=== PATIENT | male | born 1970 | race African-American/Black ===

== ENCOUNTER 2018-02-26 09:52 | Inpatient (IN) | payer OTHER ==
[2018-02-26] MEDS: CEFTRIAXONE 1 GM/50 ML (PMX) 50 ML IVPB (11:55)
[2018-02-26] MEDS: LACTATED RINGER'S 1,000 ML IV (11:55)
[2018-02-26] MEDS: IBUPROFEN 600 MG TAB PO (11:55)
[2018-02-26 11:58] LABS: ADD MAN DIFF? NO
[2018-02-26 12:07] LABS: BASOPHILS % 0.4 % (0.0-2.0); EOSINOPHILS # 0.1 10^3/ul (0.0-0.5); EOSINOPHILS % 1.3 % (0.0-7.0); HEMATOCRIT 37.5 % (42.0-52.0); HEMOGLOBIN 12.3 g/dl (14.0-18.0); LYMPHOCYTES # 1.2 10^3/ul (0.8-2.9); LYMPHOCYTES % 12.3 % (15.0-51.0); MEAN CORPUSCULAR HEMOGLOBIN 28.2 pg (29.0-33.0); MEAN CORPUSCULAR HGB CONC 32.8 g/dl (32.0-37.0); MEAN PLATELET VOLUME 10.9 fl (7.4-10.4); MONOCYTE # 0.9 10^3/ul (0.3-0.9); MONOCYTES % 8.9 % (0.0-11.0); NEUTROPHIL # 7.6 10^3/ul (1.6-7.5); NEUTROPHILS % 76.6 % (39.0-77.0); PLATELET COUNT 355 10^3/UL (140-415); RED BLOOD COUNT 4.36 10^6/ul (4.70-6.10); RED CELL DISTRIBUTION WIDTH 12.1 % (11.5-14.5)
[2018-02-26 12:07] LABS: WHITE BLOOD COUNT 9.9 10^3/ul (4.8-10.8)
[2018-02-26 12:19] LABS: ALANINE AMINOTRANSFERASE 60 IU/L (13-69); ALBUMIN 3.6 g/dl (3.3-4.9); ALBUMIN/GLOBULIN RATIO 1.12; ALKALINE PHOSPHATASE 241 IU/L (42-121); ANION GAP 19 (8-16); ASPARTATE AMINO TRANSFERASE 27 IU/L (15-46); BILIRUBIN,INDIRECT 0.4 mg/dl (0-1.1); BILIRUBIN,TOTAL 0.4 mg/dl (0.2-1.3); BLOOD UREA NITROGEN 12 mg/dl (7-20); CALCIUM 9.1 mg/dl (8.4-10.2); CARBON DIOXIDE 24 mmol/L (21-31); CHLORIDE 100 mmol/L (97-110); CREATININE 0.92 mg/dl (0.61-1.24); GLUCOSE 337 mg/dl (70-220); LIPASE 44 U/L (23-300); POTASSIUM 4.2 mmol/L (3.5-5.1); SODIUM 139 mmol/L (135-144); TOTAL PROTEIN 6.8 g/dl (6.1-8.1)
[2018-02-26 12:20] LABS: INR 1.06; PROTIME 13.9 Sec (11.9-14.9); PT RATIO 1.1
[2018-02-26 12:21] LABS: PARTIAL THROMBOPLASTIN TIME 37.1 Sec (25.0-35.0)
[2018-02-26] MEDS: VANCOMYCIN 1 GM (PMX) 250 ML IVPB (12:40)
[2018-02-26] MEDS ORDERED: NACL 0.9% 3 ML SYG IV (15:00)
[2018-02-26 15:21] LABS: URIC ACID 3.9 mg/dl (3.1-7.9)
[2018-02-26] MEDS ORDERED: GLUCAGON 1 MG INJ IM (15:30)
[2018-02-26] MEDS ORDERED: GLUCOSE GEL 15 GRAM TUBE BUCCAL (15:30)
[2018-02-26] MEDS ORDERED: GLUCOSE GEL 15 GRAM TUBE PO ×2 (15:30)
[2018-02-26] MEDS ORDERED: DEXTROSE 50% 50 ML SYRINGE IV ×2 (15:30)
[2018-02-26] MEDS: INSULIN ASPART [NOVOLOG] 3 ML PEN SC ×4 (15:50→22:25)
[2018-02-26] MEDS: COLCHICINE 0.6 MG TAB PO ×2 (15:53→19:24)
[2018-02-26] MEDS: INSULIN GLARGINE [LANTus] (100 UNITS/ML) SYG SC (22:26)
[2018-02-27] MEDS: ACCU-CHEK XX (01:25)
[2018-02-27] MEDS: HYDROCODONE/APAP (5/325) TAB PO (01:25)
[2018-02-27 05:47] LABS: ADD MAN DIFF? NO
[2018-02-27 05:52] LABS: BASOPHIL # 0.1 10^3/ul (0.0-0.1); BASOPHILS % 0.7 % (0.0-2.0); EOSINOPHILS # 0.2 10^3/ul (0.0-0.5); EOSINOPHILS % 2.1 % (0.0-7.0); HEMATOCRIT 33.7 % (42.0-52.0); HEMOGLOBIN 11.1 g/dl (14.0-18.0); LYMPHOCYTES % 13.5 % (15.0-51.0); MEAN CORPUSCULAR HGB CONC 32.9 g/dl (32.0-37.0); MEAN CORPUSCULAR VOLUME 84.9 fl (82.0-101.0); MEAN PLATELET VOLUME 10.7 fl (7.4-10.4); MONOCYTE # 0.8 10^3/ul (0.3-0.9); MONOCYTES % 10.8 % (0.0-11.0); NEUTROPHIL # 5.5 10^3/ul (1.6-7.5); NEUTROPHILS % 72.5 % (39.0-77.0); PLATELET COUNT 309 10^3/UL (140-415); RED BLOOD COUNT 3.97 10^6/ul (4.70-6.10); RED CELL DISTRIBUTION WIDTH 12.2 % (11.5-14.5)
[2018-02-27 05:52] LABS: WHITE BLOOD COUNT 7.6 10^3/ul (4.8-10.8)
[2018-02-27 06:32] LABS: ANION GAP 14 (8-16); BLOOD UREA NITROGEN 11 mg/dl (7-20); CALCIUM 8.7 mg/dl (8.4-10.2); CARBON DIOXIDE 25 mmol/L (21-31); CHLORIDE 103 mmol/L (97-110); CREATININE 0.79 mg/dl (0.61-1.24); GLUCOSE 300 mg/dl (70-220); SODIUM 138 mmol/L (135-144)
[2018-02-27] MEDS: INSULIN ASPART [NOVOLOG] 3 ML PEN SC ×6 (08:02→17:32)
[2018-02-27] MEDS: COLCHICINE 0.6 MG TAB PO ×2 (08:15→08:16)
[2018-02-27] MEDS ORDERED: VANCOMYCIN IV PER PHARMACY XX (08:30)
[2018-02-27] MEDS: PIPER-TAZO 3.375 GM IV (PMX) 100 ML IVPB ×2 (10:09→13:00)
[2018-02-27] MEDS: VANCOMYCIN 1.75 GM in SOD CHLORIDE 0.9% 500 ML IVPB (14:31)
[2018-02-27] MEDS ORDERED: LIDOCAINE 1% (MDV) 10 ML INJ INJ (18:21)
[2018-02-27] MEDS: LIDOCAINE 1% (MDV) 10 ML INJ INJ (18:42)
[2018-02-27 19:58] LABS: FLD TYPE OTHERS
[2018-02-27] MEDS ORDERED: INSULIN GLARGINE [LANTus] (100 UNITS/ML) SYG SC (20:00)
[2018-02-27] MEDS ORDERED: VANCOMYCIN 1.5 GM in SOD CHLORIDE 0.9% 250 ML IVPB (22:00)
[2018-02-28] MEDS ORDERED: VANCOMYCIN 1.5 GM in SOD CHLORIDE 0.9% 250 ML IVPB (02:00)
== END 2018-02-27 20:35 | disposition home or self-care (01) | DRG 554 ==
LOC: E/R 09:52 → MS2 13:12
PROC: 0S9M3ZZ Drainage of Right Metatarsal-Phalangeal Joint, Percutaneous Approach (ICD-10-PCS; principal; 2018-02-27)
DX: M10.9 Gout, unspecified (principal); E11.9 Type 2 diabetes mellitus without complications; Z79.4 Long term (current) use of insulin
CPT/HCPCS: 36415; 73600; 73620; 73718; 80048; 80053; 82962; 83036; 83690; 84560; 85025; 85610; 85730; 87040; 87070; 89060; 96374; 96375; 99285-25

== ENCOUNTER 2018-03-05 17:06 | Inpatient (IN) | payer OTHER ==
[2018-03-05 20:37] LABS: ADD MAN DIFF? NO
[2018-03-05 20:42] LABS: BASOPHIL # 0.1 10^3/ul (0.0-0.1); BASOPHILS % 0.3 % (0.0-2.0); EOSINOPHILS # 0.2 10^3/ul (0.0-0.5); EOSINOPHILS % 0.9 % (0.0-7.0); HEMATOCRIT 35.2 % (42.0-52.0); HEMOGLOBIN 11.4 g/dl (14.0-18.0); LYMPHOCYTES # 0.9 10^3/ul (0.8-2.9); LYMPHOCYTES % 5.5 % (15.0-51.0); MEAN CORPUSCULAR HEMOGLOBIN 27.5 pg (29.0-33.0); MEAN CORPUSCULAR HGB CONC 32.4 g/dl (32.0-37.0); MEAN CORPUSCULAR VOLUME 84.8 fl (82.0-101.0); MEAN PLATELET VOLUME 11.3 fl (7.4-10.4); MONOCYTE # 1.3 10^3/ul (0.3-0.9); MONOCYTES % 7.9 % (0.0-11.0); NEUTROPHIL # 13.3 10^3/ul (1.6-7.5); PLATELET COUNT 379 10^3/UL (140-415); RED BLOOD COUNT 4.15 10^6/ul (4.70-6.10); RED CELL DISTRIBUTION WIDTH 12.7 % (11.5-14.5)
[2018-03-05] MEDS: VANCOMYCIN 1 GM (PMX) 250 ML IVPB (20:51)
[2018-03-05 20:59] LABS: INR 1.16; PT RATIO 1.2
[2018-03-05] MEDS: CEFEPIME 2GM/50 ML (PMX) 50 ML IVPB (20:59)
[2018-03-05] MEDS: SODIUM CHLORIDE 0.9% 1L BAG IV* (20:59)
[2018-03-05 21:02] LABS: ALANINE AMINOTRANSFERASE 30 IU/L (13-69); ALBUMIN 3.9 g/dl (3.3-4.9); ALBUMIN/GLOBULIN RATIO 1.02; ALKALINE PHOSPHATASE 397 IU/L (42-121); ANION GAP 26 (8-16); ASPARTATE AMINO TRANSFERASE 24 IU/L (15-46); BILIRUBIN,INDIRECT 0.1 mg/dl (0-1.1); BILIRUBIN,TOTAL 0.1 mg/dl (0.2-1.3); BLOOD UREA NITROGEN 15 mg/dl (7-20); CALCIUM 9.5 mg/dl (8.4-10.2); CARBON DIOXIDE 18 mmol/L (21-31); CHLORIDE 95 mmol/L (97-110); CREATININE 1.09 mg/dl (0.61-1.24); POTASSIUM 4.9 mmol/L (3.5-5.1); SODIUM 134 mmol/L (135-144); TOTAL PROTEIN 7.7 g/dl (6.1-8.1)
[2018-03-05 21:12] LABS: LACTIC ACID 1.3 mmol/L (0.5-2.0)
[2018-03-05 21:19] LABS: GLUCOSE 437 mg/dl (70-220)
[2018-03-05 22:03] LABS: ERYTHROCYTE SEDIMENTATION RATE 122 mm/Hr (0-15)
[2018-03-05] MEDS: ACETAMINOPHEN 325 MG TAB PO (22:24)
[2018-03-05] MEDS: ONDANSETRON 4 MG INJ IV (22:24)
[2018-03-05 22:39] LABS: C-REACTIVE PROTEIN 46.2 mg/dl (0.0-0.9)
[2018-03-05 22:44] LABS: LACTIC ACID 1.1 mmol/L (0.5-2.0)
[2018-03-05] MEDS: LACTATED RINGER'S 1,000 ML IV (23:10)
[2018-03-05 23:38] LABS: ADD UMIC YES; UR ASCORBIC ACID NEGATIVE (NEGATIVE); UR BILIRUBIN (Dip) NEGATIVE (NEGATIVE); UR BLOOD (Dip) NEGATIVE (NEGATIVE); UR CLARITY CLEAR (CLEAR); UR COLOR YELLOW (YELLOW); UR GLUCOSE (Dip) 3+ mg/dL (NEGATIVE); UR KETONES (Dip) 2+ mg/dL (NEGATIVE); UR LEUKOCYTE ESTERASE (Dip) NEGATIVE Leu/ul (NEGATIVE); UR MUCUS FEW /HPF (NONE SEEN); UR NITRITE (Dip) NEGATIVE (NEGATIVE); UR RBC 1 /HPF (0-5); UR SPECIFIC GRAVITY (Dip) 1.023 (1.003-1.030); UR TOTAL PROTEIN (Dip) 1+ mg/dl (NEGATIVE); UR UROBILINOGEN (Dip) NEGATIVE (NEGATIVE); UR WBC 1 /HPF (0-5)
[2018-03-05 23:42] LABS: MODE NASAL CANNULA; MetHgb Venous 0.3 %; Sample Type Blood venous; Site VENOUS LINE; Venous COHb 0.3 %; Venous Fraction OxyHgb 77.4 %; Venous Oxygen Sat 77.9 mmHG (55.0-75.0); Venous Total Hemglobin 11.2 g/dl
[2018-03-05] MEDS: INSULIN LISPRO 100 UNIT/ML VIAL SC (23:55)
[2018-03-06] MEDS: HYDROCODONE/HOMATROPINE 5ML CUP PO (00:05)
[2018-03-06 04:05] LABS: LACTIC ACID 1.2 mmol/L (0.5-2.0)
[2018-03-06] MEDS ORDERED: GLUCOSE GEL 15 GRAM TUBE BUCCAL (05:30)
[2018-03-06] MEDS ORDERED: GLUCAGON 1 MG INJ IM (05:30)
[2018-03-06] MEDS ORDERED: DEXTROSE 50% 50 ML SYRINGE IV ×2 (05:30)
[2018-03-06] MEDS ORDERED: GLUCOSE GEL 15 GRAM TUBE PO ×2 (05:30)
[2018-03-06] MEDS: SOD CHLORIDE 0.9% 1,000 ML IV ×4 (05:50→14:56)
[2018-03-06 07:22] LABS: ADD MAN DIFF? NO
[2018-03-06 07:26] LABS: WHITE BLOOD COUNT 13.4 10^3/ul (4.8-10.8)
[2018-03-06 07:26] LABS: ABNORMAL IP MESSAGE 1; BASOPHIL # 0.1 10^3/ul (0.0-0.1); BASOPHILS % 0.4 % (0.0-2.0); EOSINOPHILS # 0.4 10^3/ul (0.0-0.5); EOSINOPHILS % 2.6 % (0.0-7.0); HEMATOCRIT 31.3 % (42.0-52.0); LYMPHOCYTES % 7.5 % (15.0-51.0); MEAN CORPUSCULAR HEMOGLOBIN 27.4 pg (29.0-33.0); MEAN CORPUSCULAR HGB CONC 31.9 g/dl (32.0-37.0); MEAN CORPUSCULAR VOLUME 85.8 fl (82.0-101.0); MEAN PLATELET VOLUME 10.3 fl (7.4-10.4); MONOCYTE # 1.5 10^3/ul (0.3-0.9); MONOCYTES % 11.3 % (0.0-11.0); NEUTROPHIL # 10.2 10^3/ul (1.6-7.5); NEUTROPHILS % 75.9 % (39.0-77.0); PLATELET COUNT 421 10^3/UL (140-415); POSITIVE DIFF @See below; RED BLOOD COUNT 3.65 10^6/ul (4.70-6.10); RED CELL DISTRIBUTION WIDTH 12.8 % (11.5-14.5)
[2018-03-06 07:45] LABS: ALANINE AMINOTRANSFERASE 29 IU/L (13-69); ALBUMIN 3.2 g/dl (3.3-4.9); ALBUMIN/GLOBULIN RATIO 0.88; ALKALINE PHOSPHATASE 297 IU/L (42-121); ANION GAP 17 (8-16); ASPARTATE AMINO TRANSFERASE 19 IU/L (15-46); BLOOD UREA NITROGEN 11 mg/dl (7-20); CALCIUM 8.4 mg/dl (8.4-10.2); CARBON DIOXIDE 18 mmol/L (21-31); CHLORIDE 105 mmol/L (97-110); CHOL/HDL RATIO 5.6 RATIO; CHOLESTEROL 113 mg/dl (100-200); CREATININE 0.88 mg/dl (0.61-1.24); GLUCOSE 301 mg/dl (70-220); HDL CHOLESTEROL 20 mg/dl (27-67); LDL CHOLESTEROL,CALCULATED 69 mg/dl; MAGNESIUM 1.6 mg/dl (1.7-2.5); PHOSPHORUS 3.8 mg/dl (2.5-4.9); POTASSIUM 4.3 mmol/L (3.5-5.1); SODIUM 136 mmol/L (135-144); TOTAL PROTEIN 6.8 g/dl (6.1-8.1); TRIGLYCERIDES 119 mg/dl (0-149)
[2018-03-06] MEDS ORDERED: INSULIN ASPART [NOVOLOG] 3 ML PEN SC ×2 (08:00)
[2018-03-06] MEDS ORDERED: morphine 2 MG INJ IV ×2 (08:30→19:00)
[2018-03-06] MEDS ORDERED: HYDROCODONE/APAP (5/325) TAB PO (08:30)
[2018-03-06] MEDS: INSULIN ASPART [NOVOLOG] 3 ML PEN SC ×5 (08:39→20:50)
[2018-03-06] MEDS: PIPER-TAZO 3.375 GM IV (PMX) 100 ML IVPB ×3 (09:59→22:53)
[2018-03-06] MEDS: SODIUM HYPOCHLORITE 0.125% 473 ML BTL IRR ×3 (10:43→21:00)
[2018-03-06] MEDS: VANCOMYCIN 1 GM (PMX) 250 ML IVPB ×2 (10:43→14:50)
[2018-03-06] MEDS ORDERED: INSULIN GLARGINE [LANTus] (100 UNITS/ML) SYG SC (15:00)
[2018-03-06] MEDS: INSULIN GLARGINE [LANTus] (100 UNITS/ML) SYG SC ×2 (15:41→23:00)
[2018-03-06] MEDS ORDERED: MIDAZOLAM 1 MG/ML 2 ML INJ (17:47)
[2018-03-06] MEDS ORDERED: PROPOFOL 20 ML (17:47)
[2018-03-06] MEDS ORDERED: FENTAnyl 50 MCG/ML VIAL (17:47)
[2018-03-06] MEDS: BUPIVACAINE 0.25% (MPF) 30 ML INJ (18:32)
[2018-03-06] MEDS: LIDOCAINE 1% (MPF) 30 ML INJ ×2 (18:32→18:33)
[2018-03-06] MEDS ORDERED: DIPHENHYDRAMINE 50 MG INJ IV (19:00)
[2018-03-06] MEDS ORDERED: IBUPROFEN 600 MG TAB PO (19:00)
[2018-03-06] MEDS: KETOROLAC 30 MG INJ IV (19:08)
[2018-03-06] MEDS: VANCOMYCIN 1.5 GM in SOD CHLORIDE 0.9% 250 ML IVPB (20:47)
[2018-03-06] MEDS: metroNIDAZOLE 500 MG TAB PO (22:54)
[2018-03-07] MEDS: [UNRECOGNIZED DRUG - REMARK] XX (01:00)
[2018-03-07] MEDS ORDERED: ACCUCHECK AT 2AM (Patients on SS coverage) XX (02:00)
[2018-03-07] MEDS: INSULIN ASPART [NOVOLOG] 3 ML PEN SC ×7 (02:05→21:00)
[2018-03-07] MEDS: metroNIDAZOLE 500 MG TAB PO (05:55)
[2018-03-07] MEDS: PIPER-TAZO 3.375 GM IV (PMX) 100 ML IVPB ×3 (05:55→22:00)
[2018-03-07] MEDS: ACETAMINOPHEN 500 MG TAB PO (05:59)
[2018-03-07] MEDS: PANTOPRAZOLE (EC) 40 MG TAB PO (06:00)
[2018-03-07 06:29] LABS: ADD MAN DIFF? NO
[2018-03-07 06:34] LABS: WHITE BLOOD COUNT 13.4 10^3/ul (4.8-10.8)
[2018-03-07 06:34] LABS: BASOPHILS % 0.3 % (0.0-2.0); EOSINOPHILS # 0.2 10^3/ul (0.0-0.5); EOSINOPHILS % 1.3 % (0.0-7.0); HEMATOCRIT 29.8 % (42.0-52.0); HEMOGLOBIN 9.6 g/dl (14.0-18.0); LYMPHOCYTES # 0.8 10^3/ul (0.8-2.9); LYMPHOCYTES % 6.2 % (15.0-51.0); MEAN CORPUSCULAR HEMOGLOBIN 27.6 pg (29.0-33.0); MEAN CORPUSCULAR HGB CONC 32.2 g/dl (32.0-37.0); MEAN CORPUSCULAR VOLUME 85.6 fl (82.0-101.0); MEAN PLATELET VOLUME 11.5 fl (7.4-10.4); MONOCYTE # 1.3 10^3/ul (0.3-0.9); NEUTROPHIL # 10.8 10^3/ul (1.6-7.5); PLATELET COUNT 298 10^3/UL (140-415); RED BLOOD COUNT 3.48 10^6/ul (4.70-6.10); RED CELL DISTRIBUTION WIDTH 12.6 % (11.5-14.5)
[2018-03-07 07:08] LABS: ANION GAP 15 (8-16); BLOOD UREA NITROGEN 7 mg/dl (7-20); CALCIUM 8.4 mg/dl (8.4-10.2); CARBON DIOXIDE 18 mmol/L (21-31); CHLORIDE 104 mmol/L (97-110); CREATININE 0.88 mg/dl (0.61-1.24); GLUCOSE 260 mg/dl (70-220); SODIUM 133 mmol/L (135-144)
[2018-03-07] MEDS: INSULIN GLARGINE [LANTus] (100 UNITS/ML) SYG SC ×2 (08:33→20:00)
[2018-03-07] MEDS: ONDANSETRON 4 MG INJ IV (08:35)
[2018-03-07] MEDS: VANCOMYCIN 1.5 GM in SOD CHLORIDE 0.9% 250 ML IVPB ×2 (08:43→21:00)
[2018-03-07] MEDS: SODIUM HYPOCHLORITE 0.125% 473 ML BTL IRR ×3 (08:44→21:00)
[2018-03-07] MEDS: SOD CHLORIDE 0.9% 1,000 ML IV (11:55)
[2018-03-07] MEDS: HYDROCODONE/APAP (5/325) TAB PO ×2 (13:27→23:05)
[2018-03-07 20:29] LABS: VANCOMYCIN,TROUGH 8.6 ug/ml (10.0-20.0)
[2018-03-08] MEDS: INSULIN ASPART [NOVOLOG] 3 ML PEN SC ×10 (01:00→21:00)
[2018-03-08] MEDS: ACCU-CHEK XX (02:00)
[2018-03-08] MEDS: PIPER-TAZO 3.375 GM IV (PMX) 100 ML IVPB ×2 (05:55→18:20)
[2018-03-08] MEDS: PANTOPRAZOLE (EC) 40 MG TAB PO (05:55)
[2018-03-08] MEDS: VANCOMYCIN 1.25 GM in SOD CHLORIDE 0.9% 250 ML IVPB ×2 (05:55→14:18)
[2018-03-08 06:49] LABS: ADD MAN DIFF? NO
[2018-03-08 07:05] LABS: WHITE BLOOD COUNT 10.4 10^3/ul (4.8-10.8)
[2018-03-08 07:05] LABS: BASOPHILS % 0.4 % (0.0-2.0); EOSINOPHILS # 0.3 10^3/ul (0.0-0.5); EOSINOPHILS % 3.3 % (0.0-7.0); HEMATOCRIT 30.9 % (42.0-52.0); HEMOGLOBIN 9.9 g/dl (14.0-18.0); LYMPHOCYTES # 0.8 10^3/ul (0.8-2.9); LYMPHOCYTES % 8.1 % (15.0-51.0); MEAN CORPUSCULAR HEMOGLOBIN 27.3 pg (29.0-33.0); MEAN CORPUSCULAR VOLUME 85.1 fl (82.0-101.0); MEAN PLATELET VOLUME 11.3 fl (7.4-10.4); MONOCYTE # 0.9 10^3/ul (0.3-0.9); MONOCYTES % 8.4 % (0.0-11.0); NEUTROPHIL # 8.1 10^3/ul (1.6-7.5); NEUTROPHILS % 77.9 % (39.0-77.0); PLATELET COUNT 386 10^3/UL (140-415); RED BLOOD COUNT 3.63 10^6/ul (4.70-6.10); RED CELL DISTRIBUTION WIDTH 12.6 % (11.5-14.5)
[2018-03-08 07:26] LABS: ANION GAP 14 (8-16); BLOOD UREA NITROGEN 7 mg/dl (7-20); CALCIUM 8.6 mg/dl (8.4-10.2); CARBON DIOXIDE 23 mmol/L (21-31); CHLORIDE 105 mmol/L (97-110); GLUCOSE 171 mg/dl (70-220); POTASSIUM 3.9 mmol/L (3.5-5.1); SODIUM 138 mmol/L (135-144)
[2018-03-08] MEDS: SODIUM HYPOCHLORITE 0.125% 473 ML BTL IRR ×3 (08:16→21:43)
[2018-03-08] MEDS: INSULIN GLARGINE [LANTus] (100 UNITS/ML) SYG SC ×2 (08:18→22:25)
[2018-03-08] MEDS: LIDOCAINE 1% (MPF) 5 ML VIAL SC (14:00)
[2018-03-08] MEDS: CIPROFLOXACIN 400MG/D5W 200 ML IVPB (23:00)
[2018-03-08] MEDS: AL HYDROX/MG HYDROX/SIMETH 30 ML CUP PO (23:00)
[2018-03-09] MEDS: INSULIN ASPART [NOVOLOG] 3 ML PEN SC ×7 (01:25→21:00)
[2018-03-09] MEDS ORDERED: IPRATROPIUM (NEB) 0.5 MG/2.5 ML AMP HHN (01:30)
[2018-03-09] MEDS: ACCU-CHEK XX (02:00)
[2018-03-09] MEDS: ONDANSETRON 4 MG INJ IV (02:13)
[2018-03-09 02:39] LABS: ADD MAN DIFF? NO
[2018-03-09 02:40] LABS: BASOPHIL # 0.1 10^3/ul (0.0-0.1); BASOPHILS % 0.5 % (0.0-2.0); EOSINOPHILS # 0.2 10^3/ul (0.0-0.5); EOSINOPHILS % 1.7 % (0.0-7.0); HEMATOCRIT 31.2 % (42.0-52.0); HEMOGLOBIN 10.2 g/dl (14.0-18.0); LYMPHOCYTES % 8.9 % (15.0-51.0); MEAN CORPUSCULAR HEMOGLOBIN 28.3 pg (29.0-33.0); MEAN CORPUSCULAR HGB CONC 32.7 g/dl (32.0-37.0); MEAN CORPUSCULAR VOLUME 86.7 fl (82.0-101.0); MEAN PLATELET VOLUME 9.9 fl (7.4-10.4); MONOCYTE # 0.9 10^3/ul (0.3-0.9); MONOCYTES % 8.3 % (0.0-11.0); NEUTROPHIL # 8.4 10^3/ul (1.6-7.5); NEUTROPHILS % 78.1 % (39.0-77.0); PLATELET COUNT 519 10^3/UL (140-415); RED CELL DISTRIBUTION WIDTH 12.9 % (11.5-14.5)
[2018-03-09 02:40] LABS: WHITE BLOOD COUNT 10.7 10^3/ul (4.8-10.8)
[2018-03-09 02:58] LABS: ANION GAP 20 (8-16); BLOOD UREA NITROGEN 8 mg/dl (7-20); CALCIUM 8.5 mg/dl (8.4-10.2); CARBON DIOXIDE 18 mmol/L (21-31); CHLORIDE 105 mmol/L (97-110); CREATININE 2.04 mg/dl (0.61-1.24); GLUCOSE 192 mg/dl (70-220); POTASSIUM 3.6 mmol/L (3.5-5.1); SODIUM 139 mmol/L (135-144)
[2018-03-09] MEDS: VANCOMYCIN 1.25 GM in SOD CHLORIDE 0.9% 250 ML IVPB ×2 (03:04→05:23)
[2018-03-09 03:06] LABS: D-DIMER 1452.16 ng/ml (<460)
[2018-03-09] MEDS: DILTIAZEM-D5W 125MG/125ML DRIP 125 ML IV (03:46)
[2018-03-09] MEDS: PANTOPRAZOLE (EC) 40 MG TAB PO (05:25)
[2018-03-09] MEDS: METOCLOPRAMIDE 10 MG INJ IV (05:48)
[2018-03-09] MEDS: AL HYDROX/MG HYDROX/SIMETH 30 ML CUP PO (05:48)
[2018-03-09] MEDS: PANTOPRAZOLE 40 MG INJ IV (05:48)
[2018-03-09] MEDS: SODIUM HYPOCHLORITE 0.125% 473 ML BTL IRR ×3 (09:00→21:00)
[2018-03-09] MEDS: CIPROFLOXACIN 400MG/D5W 200 ML IVPB (09:31)
[2018-03-09] MEDS: INSULIN GLARGINE [LANTus] (100 UNITS/ML) SYG SC (09:32)
[2018-03-09 16:28] LABS: ANION GAP 17 (8-16); BLOOD UREA NITROGEN 11 mg/dl (7-20); CALCIUM 8.6 mg/dl (8.4-10.2); CARBON DIOXIDE 21 mmol/L (21-31); CHLORIDE 105 mmol/L (97-110); CREATININE 2.92 mg/dl (0.61-1.24); GLUCOSE 131 mg/dl (70-220); POTASSIUM 3.5 mmol/L (3.5-5.1); SODIUM 139 mmol/L (135-144)
[2018-03-09] MEDS ORDERED: MIDAZOLAM 1 MG/ML 2 ML INJ (21:02)
[2018-03-09] MEDS ORDERED: VANCOMYCIN 1 GM INJ (21:44)
[2018-03-09] MEDS: VANCOMYCIN IV PER PHARMACY XX (22:03)
[2018-03-09] MEDS ORDERED: ETOMIDATE 20 MG INJ (22:08)
[2018-03-09] MEDS ORDERED: LIDOCAINE 2% (SDV) 5 ML INJ (22:08)
[2018-03-09] MEDS ORDERED: CEFAZOLIN 1 GM INJ (22:08)
[2018-03-09] MEDS: CLINDAMYCIN 900 MG/D5W (PMX) 50 ML IVPB (23:33)
[2018-03-10] MEDS: DILTIAZEM 25 MG INJ IV (00:09)
[2018-03-10] MEDS: ACCU-CHEK XX (01:28)
[2018-03-10] MEDS ORDERED: ACCU-CHEK XX (02:00)
[2018-03-10] MEDS: CLINDAMYCIN 900 MG/D5W (PMX) 50 ML IVPB (05:17)
[2018-03-10] MEDS ORDERED: LEVOFLOXACIN 750 MG TABLET PO (06:00)
[2018-03-10] MEDS: INSULIN ASPART [NOVOLOG] 3 ML PEN SC ×7 (07:57→21:00)
[2018-03-10] MEDS: INSULIN GLARGINE [LANTus] (100 UNITS/ML) SYG SC ×2 (07:57→08:00)
[2018-03-10] MEDS: SODIUM HYPOCHLORITE 0.125% 473 ML BTL IRR ×3 (08:00→21:00)
[2018-03-10] MEDS: ONDANSETRON 4 MG INJ IV (08:07)
[2018-03-10 09:13] LABS: ADD MAN DIFF? NO
[2018-03-10 09:14] LABS: WHITE BLOOD COUNT 9.8 10^3/ul (4.8-10.8)
[2018-03-10 09:14] LABS: BASOPHILS % 0.3 % (0.0-2.0); EOSINOPHILS # 0.1 10^3/ul (0.0-0.5); EOSINOPHILS % 1.3 % (0.0-7.0); HEMATOCRIT 29.6 % (42.0-52.0); HEMOGLOBIN 9.6 g/dl (14.0-18.0); LYMPHOCYTES # 0.7 10^3/ul (0.8-2.9); LYMPHOCYTES % 6.8 % (15.0-51.0); MEAN CORPUSCULAR HEMOGLOBIN 28.2 pg (29.0-33.0); MEAN CORPUSCULAR HGB CONC 32.4 g/dl (32.0-37.0); MEAN CORPUSCULAR VOLUME 87.1 fl (82.0-101.0); MONOCYTE # 0.8 10^3/ul (0.3-0.9); MONOCYTES % 7.7 % (0.0-11.0); NEUTROPHIL # 8.1 10^3/ul (1.6-7.5); NEUTROPHILS % 82.2 % (39.0-77.0); PLATELET COUNT 538 10^3/UL (140-415)
[2018-03-10 09:32] LABS: ANION GAP 17 (8-16); BLOOD UREA NITROGEN 14 mg/dl (7-20); CALCIUM 8.2 mg/dl (8.4-10.2); CARBON DIOXIDE 20 mmol/L (21-31); CHLORIDE 105 mmol/L (97-110); CREATININE 3.99 mg/dl (0.61-1.24); GLUCOSE 237 mg/dl (70-220); POTASSIUM 3.6 mmol/L (3.5-5.1); SODIUM 138 mmol/L (135-144)
[2018-03-10 13:13] LABS: CREATINE KINASE 82 IU/L (23-200)
[2018-03-10] MEDS: DAPTOMYCIN 650 MG in SOD CHLORIDE 0.9% 100 ML IVPB (14:22)
[2018-03-10 17:07] LABS: ADD UMIC YES; UR ASCORBIC ACID NEGATIVE (NEGATIVE); UR BILIRUBIN (Dip) NEGATIVE (NEGATIVE); UR BLOOD (Dip) 1+ mg/dL (NEGATIVE); UR CLARITY CLEAR (CLEAR); UR COLOR STRAW (YELLOW); UR GLUCOSE (Dip) NEGATIVE (NEGATIVE); UR KETONES (Dip) TRACE mg/dL (NEGATIVE); UR LEUKOCYTE ESTERASE (Dip) NEGATIVE Leu/ul (NEGATIVE); UR NITRITE (Dip) NEGATIVE (NEGATIVE); UR RBC 1 /HPF (0-5); UR SPECIFIC GRAVITY (Dip) 1.005 (1.003-1.030); UR TOTAL PROTEIN (Dip) NEGATIVE (NEGATIVE); UR UROBILINOGEN (Dip) NEGATIVE (NEGATIVE); UR WBC 1 /HPF (0-5)
[2018-03-10 17:23] LABS: CREATININE,URINE RANDOM 89.53 mg/dl (20-370)
[2018-03-10 17:23] LABS: SODIUM,URINE RANDOM 38 mmol/L (30-90)
[2018-03-10] MEDS: PROCHLORPERAZINE 10 MG INJ IV (18:35)
[2018-03-11] MEDS: ACCU-CHEK XX (02:59)
[2018-03-11] MEDS: INSULIN ASPART [NOVOLOG] 3 ML PEN SC ×7 (08:00→21:00)
[2018-03-11] MEDS: SODIUM HYPOCHLORITE 0.125% 473 ML BTL IRR ×3 (08:45→21:00)
[2018-03-11] MEDS: INSULIN GLARGINE [LANTus] (100 UNITS/ML) SYG SC (08:45)
[2018-03-11] MEDS: COLLAGENASE 5 GM (UD JAR) TOP (08:48)
[2018-03-11 10:22] LABS: ADD MAN DIFF? NO
[2018-03-11 10:24] LABS: WHITE BLOOD COUNT 8.6 10^3/ul (4.8-10.8)
[2018-03-11 10:24] LABS: BASOPHILS % 0.3 % (0.0-2.0); EOSINOPHILS # 0.2 10^3/ul (0.0-0.5); EOSINOPHILS % 1.9 % (0.0-7.0); HEMATOCRIT 30.3 % (42.0-52.0); HEMOGLOBIN 9.8 g/dl (14.0-18.0); LYMPHOCYTES # 0.9 10^3/ul (0.8-2.9); LYMPHOCYTES % 10.9 % (15.0-51.0); MEAN CORPUSCULAR HEMOGLOBIN 27.4 pg (29.0-33.0); MEAN CORPUSCULAR HGB CONC 32.3 g/dl (32.0-37.0); MEAN CORPUSCULAR VOLUME 84.6 fl (82.0-101.0); MEAN PLATELET VOLUME 9.6 fl (7.4-10.4); MONOCYTE # 0.8 10^3/ul (0.3-0.9); NEUTROPHIL # 6.4 10^3/ul (1.6-7.5); NEUTROPHILS % 74.7 % (39.0-77.0); PLATELET COUNT 571 10^3/UL (140-415); RED BLOOD COUNT 3.58 10^6/ul (4.70-6.10)
[2018-03-11 10:45] LABS: ANION GAP 17 (8-16); BLOOD UREA NITROGEN 14 mg/dl (7-20); CALCIUM 8.4 mg/dl (8.4-10.2); CARBON DIOXIDE 20 mmol/L (21-31); CHLORIDE 104 mmol/L (97-110); CREATININE 4.72 mg/dl (0.61-1.24); GLUCOSE 221 mg/dl (70-220); POTASSIUM 3.5 mmol/L (3.5-5.1); SODIUM 137 mmol/L (135-144)
[2018-03-11] MEDS: ONDANSETRON 4 MG INJ IV (16:07)
[2018-03-11] MEDS: SOD CHLORIDE 0.9% 1,000 ML IV (20:30)
[2018-03-11] MEDS: hydrALAzine 20 MG INJ IV (22:16)
[2018-03-12] MEDS: ACCU-CHEK XX (02:00)
[2018-03-12] MEDS: SOD CHLORIDE 0.9% 1,000 ML IV ×5 (04:30→22:44)
[2018-03-12 07:54] LABS: ANION GAP 13 (8-16); BLOOD UREA NITROGEN 15 mg/dl (7-20); CALCIUM 8.5 mg/dl (8.4-10.2); CARBON DIOXIDE 22 mmol/L (21-31); CHLORIDE 105 mmol/L (97-110); CREATININE 4.92 mg/dl (0.61-1.24); GLUCOSE 142 mg/dl (70-220); MAGNESIUM 1.9 mg/dl (1.7-2.5); PHOSPHORUS 4.7 mg/dl (2.5-4.9); POTASSIUM 3.4 mmol/L (3.5-5.1); SODIUM 137 mmol/L (135-144)
[2018-03-12] MEDS: SODIUM HYPOCHLORITE 0.125% 473 ML BTL IRR ×3 (09:05→22:13)
[2018-03-12] MEDS: POTASSIUM CHLORIDE (SR) 20 MEQ TAB PO (09:05)
[2018-03-12] MEDS: COLLAGENASE 5 GM (UD JAR) TOP (09:06)
[2018-03-12] MEDS: INSULIN GLARGINE [LANTus] (100 UNITS/ML) SYG SC (09:20)
[2018-03-12] MEDS: INSULIN ASPART [NOVOLOG] 3 ML PEN SC ×7 (09:32→21:00)
[2018-03-12] MEDS: DAPTOMYCIN 650 MG in SOD CHLORIDE 0.9% 100 ML IVPB (14:36)
[2018-03-12] MEDS: ACETAMINOPHEN 500 MG TAB PO (22:13)
[2018-03-12] MEDS: hydrALAzine 20 MG INJ IV (23:40)
[2018-03-13] MEDS: ACCU-CHEK XX (01:08)
[2018-03-13] MEDS: SOD CHLORIDE 0.9% 1,000 ML IV ×6 (01:09→22:37)
[2018-03-13 07:28] LABS: ADD MAN DIFF? NO
[2018-03-13 07:36] LABS: BASOPHIL # 0.1 10^3/ul (0.0-0.1); BASOPHILS % 0.7 % (0.0-2.0); EOSINOPHILS # 0.2 10^3/ul (0.0-0.5); EOSINOPHILS % 2.5 % (0.0-7.0); HEMATOCRIT 29.8 % (42.0-52.0); HEMOGLOBIN 9.5 g/dl (14.0-18.0); LYMPHOCYTES # 1.2 10^3/ul (0.8-2.9); LYMPHOCYTES % 18.2 % (15.0-51.0); MEAN CORPUSCULAR HEMOGLOBIN 27.2 pg (29.0-33.0); MEAN CORPUSCULAR HGB CONC 31.9 g/dl (32.0-37.0); MEAN CORPUSCULAR VOLUME 85.4 fl (82.0-101.0); MONOCYTE # 0.8 10^3/ul (0.3-0.9); MONOCYTES % 11.2 % (0.0-11.0); NEUTROPHIL # 4.3 10^3/ul (1.6-7.5); NEUTROPHILS % 64.6 % (39.0-77.0); PLATELET COUNT 603 10^3/UL (140-415); RED BLOOD COUNT 3.49 10^6/ul (4.70-6.10)
[2018-03-13 07:36] LABS: WHITE BLOOD COUNT 6.7 10^3/ul (4.8-10.8)
[2018-03-13 07:59] LABS: ANION GAP 10 (8-16); BLOOD UREA NITROGEN 14 mg/dl (7-20); CALCIUM 8.4 mg/dl (8.4-10.2); CARBON DIOXIDE 23 mmol/L (21-31); CHLORIDE 110 mmol/L (97-110); CREATININE 4.77 mg/dl (0.61-1.24); GLUCOSE 132 mg/dl (70-220); MAGNESIUM 1.8 mg/dl (1.7-2.5); PHOSPHORUS 4.4 mg/dl (2.5-4.9); POTASSIUM 3.7 mmol/L (3.5-5.1); SODIUM 139 mmol/L (135-144)
[2018-03-13] MEDS: INSULIN ASPART [NOVOLOG] 3 ML PEN SC ×7 (08:00→21:00)
[2018-03-13] MEDS: SODIUM HYPOCHLORITE 0.125% 473 ML BTL IRR ×3 (09:05→21:00)
[2018-03-13] MEDS: COLLAGENASE 5 GM (UD JAR) TOP (09:05)
[2018-03-13] MEDS: INSULIN GLARGINE [LANTus] (100 UNITS/ML) SYG SC (09:07)
[2018-03-13] MEDS: POLYMYXIN/BACITRACIN 1L IRRIG IRR ×2 (14:25→16:42)
[2018-03-13] MEDS ORDERED: LABETALOL HCL 20MG INJ IV (15:00)
[2018-03-13] MEDS ORDERED: hydrALAzine 20 MG INJ IV (15:00)
[2018-03-13] MEDS ORDERED: FENTAnyl 50 MCG/ML VIAL IV ×3 (15:00)
[2018-03-13] MEDS ORDERED: HYDROmorphONE 1 MG/5 ML IV SYRINGE IV ×3 (15:00)
[2018-03-13] MEDS ORDERED: METOCLOPRAMIDE 10 MG INJ IV (15:00)
[2018-03-13] MEDS ORDERED: EPHEDrine SULFATE 50 MG/5 ML SYG IV (15:00)
[2018-03-13] MEDS ORDERED: ONDANSETRON 4 MG INJ IV (15:00)
[2018-03-13] MEDS ORDERED: MIDAZOLAM 1 MG/ML 2 ML INJ IV (15:00)
[2018-03-13] MEDS ORDERED: DIPHENHYDRAMINE 50 MG INJ IV (15:00)
[2018-03-13] MEDS ORDERED: ALBUTEROL 0.083% (NEB) 2.5 MG/3 ML AMP HHN (15:00)
[2018-03-13] MEDS ORDERED: PROPOFOL 20 ML (15:33)
[2018-03-13] MEDS ORDERED: LIDOCAINE 2% (SDV) 5 ML INJ (16:48)
[2018-03-13] MEDS: MEPERIDINE 25 MG INJ IV (17:12)
[2018-03-13] MEDS: ONDANSETRON 4 MG INJ IV (17:17)
[2018-03-14] MEDS: ACCU-CHEK XX (02:00)
[2018-03-14] MEDS: SOD CHLORIDE 0.9% 1,000 ML IV ×5 (02:06→21:02)
[2018-03-14] MEDS: INSULIN ASPART [NOVOLOG] 3 ML PEN SC ×7 (07:35→21:00)
[2018-03-14] MEDS: SODIUM HYPOCHLORITE 0.125% 473 ML BTL IRR ×3 (08:15→21:00)
[2018-03-14] MEDS: COLLAGENASE 5 GM (UD JAR) TOP (09:00)
[2018-03-14] MEDS: INSULIN GLARGINE [LANTus] (100 UNITS/ML) SYG SC (10:07)
[2018-03-14] MEDS: DAPTOMYCIN 650 MG in SOD CHLORIDE 0.9% 100 ML IVPB (14:51)
[2018-03-14 19:11] LABS: ADD UMIC NO; UR ASCORBIC ACID NEGATIVE (NEGATIVE); UR BILIRUBIN (Dip) NEGATIVE (NEGATIVE); UR BLOOD (Dip) NEGATIVE (NEGATIVE); UR CLARITY CLEAR (CLEAR); UR COLOR COLORLESS (YELLOW); UR GLUCOSE (Dip) NEGATIVE (NEGATIVE); UR KETONES (Dip) NEGATIVE (NEGATIVE); UR LEUKOCYTE ESTERASE (Dip) NEGATIVE Leu/ul (NEGATIVE); UR NITRITE (Dip) NEGATIVE (NEGATIVE); UR SPECIFIC GRAVITY (Dip) 1.003 (1.003-1.030); UR TOTAL PROTEIN (Dip) NEGATIVE (NEGATIVE); UR UROBILINOGEN (Dip) NEGATIVE (NEGATIVE)
[2018-03-15] MEDS: ACCU-CHEK XX (01:25)
[2018-03-15] MEDS: SOD CHLORIDE 0.9% 1,000 ML IV ×2 (03:45→14:51)
[2018-03-15 05:31] LABS: ADD MAN DIFF? NO
[2018-03-15 05:45] LABS: WHITE BLOOD COUNT 6.4 10^3/ul (4.8-10.8)
[2018-03-15 05:45] LABS: BASOPHIL # 0.1 10^3/ul (0.0-0.1); BASOPHILS % 0.8 % (0.0-2.0); EOSINOPHILS # 0.2 10^3/ul (0.0-0.5); EOSINOPHILS % 3.1 % (0.0-7.0); HEMATOCRIT 27.2 % (42.0-52.0); HEMOGLOBIN 8.8 g/dl (14.0-18.0); LYMPHOCYTES % 15.7 % (15.0-51.0); MEAN CORPUSCULAR HEMOGLOBIN 27.8 pg (29.0-33.0); MEAN CORPUSCULAR HGB CONC 32.4 g/dl (32.0-37.0); MEAN CORPUSCULAR VOLUME 85.8 fl (82.0-101.0); MEAN PLATELET VOLUME 9.6 fl (7.4-10.4); MONOCYTE # 0.6 10^3/ul (0.3-0.9); MONOCYTES % 9.7 % (0.0-11.0); NEUTROPHIL # 4.4 10^3/ul (1.6-7.5); NEUTROPHILS % 69.1 % (39.0-77.0); PLATELET COUNT 558 10^3/UL (140-415); RED BLOOD COUNT 3.17 10^6/ul (4.70-6.10); RED CELL DISTRIBUTION WIDTH 13.1 % (11.5-14.5)
[2018-03-15 05:59] LABS: MAGNESIUM 1.7 mg/dl (1.7-2.5)
[2018-03-15 05:59] LABS: PHOSPHORUS 4.6 mg/dl (2.5-4.9)
[2018-03-15 06:10] LABS: ALANINE AMINOTRANSFERASE 17 IU/L (13-69); ALBUMIN 2.6 g/dl (3.3-4.9); ALBUMIN/GLOBULIN RATIO 0.83; ALKALINE PHOSPHATASE 116 IU/L (42-121); ANION GAP 10 (8-16); ASPARTATE AMINO TRANSFERASE 17 IU/L (15-46); BILIRUBIN,INDIRECT 0.2 mg/dl (0-1.1); BILIRUBIN,TOTAL 0.2 mg/dl (0.2-1.3); BLOOD UREA NITROGEN 12 mg/dl (7-20); CARBON DIOXIDE 20 mmol/L (21-31); CHLORIDE 113 mmol/L (97-110); CREATININE 4.24 mg/dl (0.61-1.24); GLUCOSE 144 mg/dl (70-220); POTASSIUM 3.7 mmol/L (3.5-5.1); SODIUM 139 mmol/L (135-144); TOTAL PROTEIN 5.7 g/dl (6.1-8.1); URIC ACID 7.2 mg/dl (3.1-7.9)
[2018-03-15] MEDS: INSULIN ASPART [NOVOLOG] 3 ML PEN SC ×7 (08:00→21:00)
[2018-03-15] MEDS: SODIUM HYPOCHLORITE 0.125% 473 ML BTL IRR ×3 (08:05→20:35)
[2018-03-15] MEDS: COLLAGENASE 5 GM (UD JAR) TOP (08:06)
[2018-03-15] MEDS: INSULIN GLARGINE [LANTus] (100 UNITS/ML) SYG SC (08:12)
[2018-03-16] MEDS: SOD CHLORIDE 0.9% 1,000 ML IV ×4 (00:12→21:23)
[2018-03-16] MEDS: ACCU-CHEK XX (02:00)
[2018-03-16] MEDS: INSULIN ASPART [NOVOLOG] 3 ML PEN SC ×7 (07:58→20:55)
[2018-03-16] MEDS: COLLAGENASE 5 GM (UD JAR) TOP (08:15)
[2018-03-16] MEDS: AMLODIPINE 2.5 MG TAB PO (08:15)
[2018-03-16] MEDS: SODIUM HYPOCHLORITE 0.125% 473 ML BTL IRR ×3 (08:16→20:55)
[2018-03-16] MEDS: INSULIN GLARGINE [LANTus] (100 UNITS/ML) SYG SC (09:26)
[2018-03-16] MEDS: DAPTOMYCIN 650 MG in SOD CHLORIDE 0.9% 100 ML IVPB (13:26)
[2018-03-16 18:48] LABS: ANION GAP 10 (8-16); BLOOD UREA NITROGEN 12 mg/dl (7-20); CALCIUM 8.4 mg/dl (8.4-10.2); CARBON DIOXIDE 21 mmol/L (21-31); CHLORIDE 111 mmol/L (97-110); CREATININE 4.26 mg/dl (0.61-1.24); GLUCOSE 141 mg/dl (70-220); POTASSIUM 3.9 mmol/L (3.5-5.1); SODIUM 138 mmol/L (135-144)
[2018-03-17] MEDS: SOD CHLORIDE 0.9% 1,000 ML IV ×3 (01:57→14:33)
[2018-03-17] MEDS: ACCU-CHEK XX (02:00)
[2018-03-17 06:38] LABS: ADD MAN DIFF? NO
[2018-03-17 06:46] LABS: WHITE BLOOD COUNT 5.4 10^3/ul (4.8-10.8)
[2018-03-17 06:46] LABS: BASOPHIL # 0.1 10^3/ul (0.0-0.1); BASOPHILS % 0.9 % (0.0-2.0); EOSINOPHILS # 0.2 10^3/ul (0.0-0.5); EOSINOPHILS % 3.4 % (0.0-7.0); HEMATOCRIT 26.7 % (42.0-52.0); HEMOGLOBIN 8.6 g/dl (14.0-18.0); LYMPHOCYTES # 1.2 10^3/ul (0.8-2.9); LYMPHOCYTES % 21.8 % (15.0-51.0); MEAN CORPUSCULAR HEMOGLOBIN 27.7 pg (29.0-33.0); MEAN CORPUSCULAR HGB CONC 32.2 g/dl (32.0-37.0); MEAN CORPUSCULAR VOLUME 86.1 fl (82.0-101.0); MONOCYTE # 0.7 10^3/ul (0.3-0.9); MONOCYTES % 12.1 % (0.0-11.0); NEUTROPHIL # 3.3 10^3/ul (1.6-7.5); NEUTROPHILS % 61.2 % (39.0-77.0); PLATELET COUNT 530 10^3/UL (140-415); RED CELL DISTRIBUTION WIDTH 13.2 % (11.5-14.5)
[2018-03-17 07:17] LABS: ANION GAP 12 (8-16); BLOOD UREA NITROGEN 12 mg/dl (7-20); CALCIUM 8.6 mg/dl (8.4-10.2); CARBON DIOXIDE 21 mmol/L (21-31); CHLORIDE 112 mmol/L (97-110); CREATININE 4.08 mg/dl (0.61-1.24); GLUCOSE 82 mg/dl (70-220); POTASSIUM 4.5 mmol/L (3.5-5.1); SODIUM 140 mmol/L (135-144)
[2018-03-17 07:19] LABS: CREATINE KINASE 69 IU/L (23-200)
[2018-03-17] MEDS: INSULIN ASPART [NOVOLOG] 3 ML PEN SC ×7 (08:00→21:00)
[2018-03-17] MEDS: COLLAGENASE 5 GM (UD JAR) TOP (08:13)
[2018-03-17] MEDS: SODIUM HYPOCHLORITE 0.125% 473 ML BTL IRR ×3 (08:14→21:00)
[2018-03-17] MEDS: AMLODIPINE 2.5 MG TAB PO (08:14)
[2018-03-17] MEDS: INSULIN GLARGINE [LANTus] (100 UNITS/ML) SYG SC (08:16)
[2018-03-18] MEDS: SOD CHLORIDE 0.9% 1,000 ML IV (00:28)
[2018-03-18] MEDS: ACCU-CHEK XX (02:00)
[2018-03-18 06:24] LABS: ADD MAN DIFF? NO
[2018-03-18 06:27] LABS: WHITE BLOOD COUNT 5.3 10^3/ul (4.8-10.8)
[2018-03-18 06:27] LABS: BASOPHIL # 0.1 10^3/ul (0.0-0.1); BASOPHILS % 1.1 % (0.0-2.0); EOSINOPHILS # 0.2 10^3/ul (0.0-0.5); EOSINOPHILS % 3.4 % (0.0-7.0); HEMATOCRIT 26.7 % (42.0-52.0); HEMOGLOBIN 8.5 g/dl (14.0-18.0); LYMPHOCYTES # 1.3 10^3/ul (0.8-2.9); LYMPHOCYTES % 23.5 % (15.0-51.0); MEAN CORPUSCULAR HEMOGLOBIN 27.7 pg (29.0-33.0); MEAN CORPUSCULAR HGB CONC 31.8 g/dl (32.0-37.0); MEAN PLATELET VOLUME 9.7 fl (7.4-10.4); MONOCYTE # 0.6 10^3/ul (0.3-0.9); MONOCYTES % 11.7 % (0.0-11.0); NEUTROPHIL # 3.2 10^3/ul (1.6-7.5); NEUTROPHILS % 59.7 % (39.0-77.0); PLATELET COUNT 475 10^3/UL (140-415); RED BLOOD COUNT 3.07 10^6/ul (4.70-6.10); RED CELL DISTRIBUTION WIDTH 13.3 % (11.5-14.5)
[2018-03-18 06:56] LABS: ANION GAP 10 (8-16); BLOOD UREA NITROGEN 16 mg/dl (7-20); CALCIUM 8.4 mg/dl (8.4-10.2); CARBON DIOXIDE 21 mmol/L (21-31); CHLORIDE 112 mmol/L (97-110); GLUCOSE 105 mg/dl (70-220); POTASSIUM 4.2 mmol/L (3.5-5.1); SODIUM 139 mmol/L (135-144)
[2018-03-18] MEDS: INSULIN ASPART [NOVOLOG] 3 ML PEN SC ×7 (07:35→21:00)
[2018-03-18] MEDS: SODIUM HYPOCHLORITE 0.125% 473 ML BTL IRR ×3 (08:44→21:00)
[2018-03-18] MEDS: COLLAGENASE 5 GM (UD JAR) TOP (08:45)
[2018-03-18] MEDS: AMLODIPINE 5 MG TAB PO ×2 (08:49→20:12)
[2018-03-18] MEDS: HEPARIN 5,000 UNIT/0.5 ML VIAL SC ×2 (08:50→20:14)
[2018-03-18] MEDS: INSULIN GLARGINE [LANTus] (100 UNITS/ML) SYG SC (08:50)
[2018-03-18] MEDS: hydrALAzine 20 MG INJ IV (08:50)
[2018-03-18] MEDS: DAPTOMYCIN 650 MG in SOD CHLORIDE 0.9% 100 ML IVPB (14:42)
[2018-03-18] MEDS ORDERED: morphine LIQ (10 MG/5 ML) CUP PO (23:30)
[2018-03-19] MEDS: ACCU-CHEK XX (02:00)
[2018-03-19] MEDS: INSULIN ASPART [NOVOLOG] 3 ML PEN SC ×7 (08:00→21:00)
[2018-03-19] MEDS: INSULIN GLARGINE [LANTus] (100 UNITS/ML) SYG SC (08:29)
[2018-03-19] MEDS: HEPARIN 5,000 UNIT/0.5 ML VIAL SC ×2 (08:29→21:20)
[2018-03-19] MEDS: AMLODIPINE 5 MG TAB PO ×2 (08:29→21:17)
[2018-03-19] MEDS: SODIUM HYPOCHLORITE 0.125% 473 ML BTL IRR ×3 (08:42→21:00)
[2018-03-19] MEDS: COLLAGENASE 5 GM (UD JAR) TOP (08:42)
[2018-03-19 09:20] LABS: ADD MAN DIFF? NO
[2018-03-19 09:28] LABS: WHITE BLOOD COUNT 4.7 10^3/ul (4.8-10.8)
[2018-03-19 09:28] LABS: BASOPHIL # 0.1 10^3/ul (0.0-0.1); BASOPHILS % 1.3 % (0.0-2.0); EOSINOPHILS # 0.1 10^3/ul (0.0-0.5); EOSINOPHILS % 2.8 % (0.0-7.0); HEMATOCRIT 26.2 % (42.0-52.0); HEMOGLOBIN 8.3 g/dl (14.0-18.0); LYMPHOCYTES # 1.1 10^3/ul (0.8-2.9); MEAN CORPUSCULAR HEMOGLOBIN 27.4 pg (29.0-33.0); MEAN CORPUSCULAR HGB CONC 31.7 g/dl (32.0-37.0); MEAN CORPUSCULAR VOLUME 86.5 fl (82.0-101.0); MEAN PLATELET VOLUME 10.6 fl (7.4-10.4); MONOCYTE # 0.5 10^3/ul (0.3-0.9); MONOCYTES % 10.5 % (0.0-11.0); NEUTROPHIL # 2.8 10^3/ul (1.6-7.5); PLATELET COUNT 526 10^3/UL (140-415); RED BLOOD COUNT 3.03 10^6/ul (4.70-6.10); RED CELL DISTRIBUTION WIDTH 13.4 % (11.5-14.5)
[2018-03-19 10:14] LABS: ANION GAP 11 (8-16); BLOOD UREA NITROGEN 16 mg/dl (7-20); CALCIUM 8.7 mg/dl (8.4-10.2); CARBON DIOXIDE 23 mmol/L (21-31); CHLORIDE 109 mmol/L (97-110); CREATININE 4.18 mg/dl (0.61-1.24); GLUCOSE 76 mg/dl (70-220); SODIUM 139 mmol/L (135-144)
[2018-03-19] MEDS: METOPROLOL (XL) 25 MG TAB PO (15:19)
[2018-03-19 16:40] LABS: ADD UMIC NO; UR ASCORBIC ACID NEGATIVE (NEGATIVE); UR BILIRUBIN (Dip) NEGATIVE (NEGATIVE); UR BLOOD (Dip) NEGATIVE (NEGATIVE); UR CLARITY CLEAR (CLEAR); UR COLOR COLORLESS (YELLOW); UR GLUCOSE (Dip) NEGATIVE (NEGATIVE); UR KETONES (Dip) NEGATIVE (NEGATIVE); UR LEUKOCYTE ESTERASE (Dip) NEGATIVE Leu/ul (NEGATIVE); UR NITRITE (Dip) NEGATIVE (NEGATIVE); UR SPECIFIC GRAVITY (Dip) 1.004 (1.003-1.030); UR TOTAL PROTEIN (Dip) NEGATIVE (NEGATIVE); UR UROBILINOGEN (Dip) NEGATIVE (NEGATIVE)
[2018-03-20] MEDS: ACCU-CHEK XX (02:00)
[2018-03-20 05:46] LABS: ADD MAN DIFF? NO
[2018-03-20 05:49] LABS: BASOPHIL # 0.1 10^3/ul (0.0-0.1); BASOPHILS % 1.1 % (0.0-2.0); EOSINOPHILS # 0.2 10^3/ul (0.0-0.5); EOSINOPHILS % 3.8 % (0.0-7.0); HEMATOCRIT 26.5 % (42.0-52.0); HEMOGLOBIN 8.3 g/dl (14.0-18.0); LYMPHOCYTES # 1.1 10^3/ul (0.8-2.9); LYMPHOCYTES % 24.9 % (15.0-51.0); MEAN CORPUSCULAR HEMOGLOBIN 26.9 pg (29.0-33.0); MEAN CORPUSCULAR HGB CONC 31.3 g/dl (32.0-37.0); MEAN CORPUSCULAR VOLUME 85.8 fl (82.0-101.0); MEAN PLATELET VOLUME 9.6 fl (7.4-10.4); MONOCYTE # 0.5 10^3/ul (0.3-0.9); MONOCYTES % 11.5 % (0.0-11.0); NEUTROPHIL # 2.6 10^3/ul (1.6-7.5); NEUTROPHILS % 58.2 % (39.0-77.0); PLATELET COUNT 481 10^3/UL (140-415); RED BLOOD COUNT 3.09 10^6/ul (4.70-6.10); RED CELL DISTRIBUTION WIDTH 13.4 % (11.5-14.5)
[2018-03-20 05:49] LABS: WHITE BLOOD COUNT 4.4 10^3/ul (4.8-10.8)
[2018-03-20 06:15] LABS: ANION GAP 11 (8-16); BLOOD UREA NITROGEN 18 mg/dl (7-20); CALCIUM 8.7 mg/dl (8.4-10.2); CARBON DIOXIDE 24 mmol/L (21-31); CHLORIDE 107 mmol/L (97-110); CREATININE 4.01 mg/dl (0.61-1.24); GLUCOSE 104 mg/dl (70-220); POTASSIUM 4.1 mmol/L (3.5-5.1); SODIUM 138 mmol/L (135-144)
[2018-03-20] MEDS: INSULIN ASPART [NOVOLOG] 3 ML PEN SC ×7 (08:00→20:46)
[2018-03-20] MEDS: SODIUM HYPOCHLORITE 0.125% 473 ML BTL IRR ×3 (09:00→20:49)
[2018-03-20] MEDS: COLLAGENASE 5 GM (UD JAR) TOP (09:00)
[2018-03-20] MEDS: AMLODIPINE 5 MG TAB PO ×2 (09:01→20:48)
[2018-03-20] MEDS: METOPROLOL (XL) 25 MG TAB PO (09:01)
[2018-03-20] MEDS: HEPARIN 5,000 UNIT/0.5 ML VIAL SC ×2 (09:03→20:48)
[2018-03-20] MEDS: INSULIN GLARGINE [LANTus] (100 UNITS/ML) SYG SC (09:03)
[2018-03-20] MEDS: DAPTOMYCIN 650 MG in SOD CHLORIDE 0.9% 100 ML IVPB (14:35)
[2018-03-20 16:12] LABS: IRON 29 ug/dl (35-150)
[2018-03-20 16:18] LABS: % IRON SATURATION 15 % SAT (22-52); TOTAL IRON BINDING CAPACITY 197 ug/dl (241-421)
== END 2018-03-20 21:30 | disposition home health service (06) | DRG 853 ==
LOC: PP2 03-08 20:25 → E/R 17:06 → MS4 20:43
PROC: 0J9Q0ZZ Drainage of Right Foot Subcutaneous Tissue and Fascia, Open Approach (ICD-10-PCS; principal; 2018-03-06 17:49)
PROC: 0LBV0ZZ Excision of Right Foot Tendon, Open Approach (ICD-10-PCS; 2018-03-06 17:49)
PROC: 0JBQ0ZZ Excision of Right Foot Subcutaneous Tissue and Fascia, Open Approach (ICD-10-PCS; 2018-03-06 17:49)
PROC: 0MBS0ZZ Excision of Right Foot Bursa and Ligament, Open Approach (ICD-10-PCS; 2018-03-06 17:49)
PROC: 0MBS0ZZ Excision of Right Foot Bursa and Ligament, Open Approach (ICD-10-PCS; 2018-03-06 17:49)
PROC: 0J9Q0ZZ Drainage of Right Foot Subcutaneous Tissue and Fascia, Open Approach (ICD-10-PCS; 2018-03-06 17:49)
PROC: 0JBQ0ZZ Excision of Right Foot Subcutaneous Tissue and Fascia, Open Approach (ICD-10-PCS; 2018-03-06 17:49)
PROC: 0HBNXZZ Excision of Left Foot Skin, External Approach (ICD-10-PCS; 2018-03-06 17:49)
PROC: 02HV33Z Insertion of Infusion Device into Superior Vena Cava, Percutaneous Approach (ICD-10-PCS; 2018-03-06 17:49)
DX: A41.1 Sepsis due to other specified staphylococcus (principal); E11.10 Type 2 diabetes mellitus with ketoacidosis without coma; N17.9 Acute kidney failure, unspecified; L03.115 Cellulitis of right lower limb; L97.419 Non-pressure chronic ulcer of right heel and midfoot with unspecified severity; L02.611 Cutaneous abscess of right foot; M86.9 Osteomyelitis, unspecified; E11.69 Type 2 diabetes mellitus with other specified complication; E11.40 Type 2 diabetes mellitus with diabetic neuropathy, unspecified; E11.621 Type 2 diabetes mellitus with foot ulcer; E11.65 Type 2 diabetes mellitus with hyperglycemia; E11.43 Type 2 diabetes mellitus with diabetic autonomic (poly)neuropathy; I10 Essential (primary) hypertension; I48.0 Paroxysmal atrial fibrillation; K31.84 Gastroparesis; L84 Corns and callosities; M79.671 Pain in right foot; R14.0 Abdominal distension (gaseous); R60.0 Localized edema; B95.62 Methicillin resistant Staphylococcus aureus infection as the cause of diseases classified elsewhere; Z79.4 Long term (current) use of insulin
CPT/HCPCS: 36415; 36569; 71045; 73630; 73718; 74018; 76775; 76937; 78582; 80048; 80053; 80061; 80202; 81001; 81003; 82540; 82550; 82728; 82803; 82962; 83036; 83540; 83605; 83735; 84100; 84155; 84300; 84560; 85025; 85378; 85610; 85651; 85730; 86140; 87040; 87070; 87075; 89190; 93005; 93306; 93970; 97161; 99291-25

== ENCOUNTER 2018-05-08 14:34 | Day surgery (SDC) | payer OTHER ==
[2018-05-08] MEDS ORDERED: SOD CHLORIDE 0.9% 500 ML IV (15:00)
[2018-05-08] MEDS ORDERED: LABETALOL HCL 20MG INJ IV (19:30)
[2018-05-08] MEDS ORDERED: MIDAZOLAM 1 MG/ML 2 ML INJ IV (19:30)
[2018-05-08] MEDS ORDERED: OXYCODONE/ACETAMINOPHEN (5/325) TAB PO ×2 (19:30)
[2018-05-08] MEDS ORDERED: FENTAnyl 50 MCG/ML VIAL IV ×3 (19:30)
[2018-05-08] MEDS ORDERED: hydrALAzine 20 MG INJ IV (19:30)
[2018-05-08] MEDS ORDERED: EPHEDrine SULFATE 50 MG/5 ML SYG IV (19:30)
[2018-05-08] MEDS ORDERED: ONDANSETRON 4 MG INJ IV (19:30)
[2018-05-08] MEDS ORDERED: DIPHENHYDRAMINE 50 MG INJ IV (19:30)
[2018-05-08] MEDS ORDERED: HYDROmorphONE 1 MG/5 ML IV SYRINGE IV ×3 (19:30)
[2018-05-08] MEDS ORDERED: MEPERIDINE 25 MG INJ IV (19:30)
[2018-05-08] MEDS ORDERED: METOCLOPRAMIDE 10 MG INJ IV (19:30)
[2018-05-08] MEDS ORDERED: CEFAZOLIN 1 GM INJ (19:38)
[2018-05-08] MEDS ORDERED: LIDOCAINE 1%/EPI 30 ML INJ (19:38)
[2018-05-08] MEDS ORDERED: PROPOFOL 20 ML (19:38)
[2018-05-08] MEDS ORDERED: MINERAL OIL LIGHT 10 ML VIAL (19:38)
[2018-05-08] MEDS ORDERED: LIDOCAINE 2% (SDV) 5 ML INJ (19:38)
[2018-05-08] MEDS ORDERED: FENTAnyl 50 MCG/ML VIAL (19:38)
[2018-05-08] MEDS ORDERED: ONDANSETRON 4 MG INJ (20:19)
[2018-05-08] MEDS ORDERED: EPHEDrine 25 MG/5 ML SYG (20:19)
== END 2018-05-08 22:10 | disposition home or self-care (01) ==
LOC: SDS 14:34
DX: E11.621 Type 2 diabetes mellitus with foot ulcer (principal); E11.42 Type 2 diabetes mellitus with diabetic polyneuropathy; E11.65 Type 2 diabetes mellitus with hyperglycemia; Z79.4 Long term (current) use of insulin
CPT/HCPCS: 11043; 82962

== ENCOUNTER 2018-06-19 14:16 | Day surgery (SDC) | payer OTHER ==
[~2018-06-19 14:16] MED LIST: CEFAZOLIN 2 GM/50 ML (PMX) 50 ML IVPB
[2018-06-19] MEDS ORDERED: hydrALAzine 20 MG INJ IV (15:30)
[2018-06-19] MEDS ORDERED: OXYCODONE/ACETAMINOPHEN (5/325) TAB PO ×3 (15:30→17:30)
[2018-06-19] MEDS ORDERED: ONDANSETRON 4 MG INJ IV ×2 (15:30→17:30)
[2018-06-19] MEDS ORDERED: LABETALOL HCL 20MG INJ IV (15:30)
[2018-06-19] MEDS ORDERED: HYDROmorphONE 1 MG/5 ML IV SYRINGE IV ×3 (15:30)
[2018-06-19] MEDS ORDERED: PROPOFOL 20 ML (15:41)
[2018-06-19] MEDS ORDERED: MIDAZOLAM 1 MG/ML 2 ML INJ (15:41)
[2018-06-19] MEDS ORDERED: FENTAnyl 50 MCG/ML VIAL (15:41)
[2018-06-19] MEDS ORDERED: CEFAZOLIN 1 GM INJ (16:27)
[2018-06-19] MEDS: MINERAL OIL LIGHT 10 ML VIAL (17:01)
[2018-06-19] MEDS: POLYMYXIN/BACITRACIN 1L IRRIG IRR (17:02)
[2018-06-19] MEDS: LIDOCAINE 1% (STERILE-PAK) 30 ML INJ (17:02)
== END 2018-06-19 18:26 | disposition home or self-care (01) ==
LOC: SDS 14:16
DX: E11.621 Type 2 diabetes mellitus with foot ulcer (principal); E11.42 Type 2 diabetes mellitus with diabetic polyneuropathy; E11.22 Type 2 diabetes mellitus with diabetic chronic kidney disease; I12.9 Hypertensive chronic kidney disease with stage 1 through stage 4 chronic kidney disease, or unspecified chronic kidney disease; N18.3 Chronic kidney disease, stage 3 (moderate)
CPT/HCPCS: 15120; 82962; 87070; 87075

== ENCOUNTER 2019-03-15 14:13 | Emergency (ER) | payer OTHER ==
[2019-03-15 14:37] LABS: ADD MAN DIFF? NO
[2019-03-15] MEDS: SOD CHLORIDE 0.9% 1,000 ML IV (14:39)
[2019-03-15 14:43] LABS: BASOPHIL # 0.1 10^3/ul (0.0-0.1); EOSINOPHILS # 0.2 10^3/ul (0.0-0.5); EOSINOPHILS % 3.5 % (0.0-7.0); HEMATOCRIT 39.3 % (42.0-52.0); HEMOGLOBIN 12.8 g/dl (14.0-18.0); LYMPHOCYTES # 1.3 10^3/ul (0.8-2.9); LYMPHOCYTES % 22.1 % (15.0-51.0); MEAN CORPUSCULAR HEMOGLOBIN 28.2 pg (29.0-33.0); MEAN CORPUSCULAR HGB CONC 32.6 g/dl (32.0-37.0); MEAN CORPUSCULAR VOLUME 86.6 fl (82.0-101.0); MEAN PLATELET VOLUME 10.4 fl (7.4-10.4); MONOCYTE # 0.4 10^3/ul (0.3-0.9); MONOCYTES % 6.4 % (0.0-11.0); NEUTROPHIL # 3.9 10^3/ul (1.6-7.5); NEUTROPHILS % 66.5 % (39.0-77.0); PLATELET COUNT 271 10^3/UL (140-415); RED BLOOD COUNT 4.54 10^6/ul (4.70-6.10); RED CELL DISTRIBUTION WIDTH 12.4 % (11.5-14.5)
[2019-03-15 14:43] LABS: WHITE BLOOD COUNT 5.8 10^3/ul (4.8-10.8)
[2019-03-15 15:01] LABS: INR 0.94; PROTIME 12.7 Sec (11.9-14.9)
[2019-03-15 15:04] LABS: ANION GAP 13 (5-13); BLOOD UREA NITROGEN 22 mg/dl (7-20); CARBON DIOXIDE 24 mmol/L (21-31); CHLORIDE 106 mmol/L (97-110); CREATININE 2.06 mg/dl (0.61-1.24); Estimated GFR 42 mL/min (>60); GLUCOSE 108 mg/dl (70-220); POTASSIUM 4.1 mmol/L (3.5-5.1); SODIUM 143 mmol/L (135-144)
[2019-03-15 15:16] LABS: TROPONIN-I < 0.012 ng/ml (0.000-0.120)
== END 2019-03-15 17:31 | disposition home or self-care (01) ==
LOC: E/R 14:13
DX: I95.1 Orthostatic hypotension (principal); D64.9 Anemia, unspecified; E86.0 Dehydration; K59.1 Functional diarrhea; E11.22 Type 2 diabetes mellitus with diabetic chronic kidney disease; N18.9 Chronic kidney disease, unspecified; I12.9 Hypertensive chronic kidney disease with stage 1 through stage 4 chronic kidney disease, or unspecified chronic kidney disease; Z79.4 Long term (current) use of insulin
CPT/HCPCS: 36415; 71045; 80048; 82962; 84484; 85025; 85610; 93005; 96360; 99285-25